=== PATIENT | male | born 1965 | race Caucasian/White ===

== ENCOUNTER → 2024-04-09 14:31 | Outpatient (CLI) | payer BC, SELFPAY ==
[2024-04-09 14:53] LABS: Hematocrit 42.6 % (41-53); Mean Corpuscular HGB Conc 35.1 % (30-36); Mean Corpuscular Hemoglobin 28.8 PG (26-34); Platelet Count 242 X10^3/uL (150-400); Red Cell Distribution Width 14.4 % (11.6-14.8)
[2024-04-09 15:05] LABS: HEMOLYSIS < 15 (0-50)
[2024-04-09 15:12] LABS: Alanine Aminotransferase 20 IU/L (<50); Albumin 4.5 g/dL (3.5-5.0); Albumin Globulin Ratio 1.7 (1.0-2.8); Alkaline Phosphatase 72 U/L (38-126); Aspartate Aminotransferase 24 IU/L (17-59); Bilirubin Total 0.5 mg/dL (0.2-1.3); Blood Urea Nitrogen 12 mg/dL (9-20); Calcium 9.6 mg/dL (8.4-10.2); Carbon Dioxide 28 mmol/L (22-32); Chloride 103 mmol/L (98-107); Cholesterol 194 mg/dL (140-199); Estimated Glomerular Filt Rate > 60 mL/min (>60); Globulin 2.6 g/dL (1.7-4.1); Glucose 107 mg/dL (80-110); HDL Cholesterol 39 mg/dL (40-60); LDL Cholesterol Calculated 100 mg/dL (<100); Potassium 4.2 mmol/L (3.4-5.1); Sodium 138 mmol/L (137-145); Total Protein 7.1 g/dL (6.3-8.2); Triglycerides 275 mg/dL (35-150)
[2024-04-09 18:07] LABS: Prostate Specific Antigen Scrn 1.16 ng/mL (0.1-4.0)
[2024-04-09 18:54] LABS: HIV 1 & 2 Ab/Ag 4th Gen Combo NEGATIVE (NEGATIVE); Hep C Virus Ab w/Reflex Quant NEGATIVE s/c (NEGATIVE)
== END ==
LOC: LAB 14:32
PROVIDERS: PCP Family Medicine; Referring Provider Family Medicine; Visit Provider Family Medicine
DX: I10 Essential (primary) hypertension (principal); R13.10 Dysphagia, unspecified; Z82.49 Family history of ischemic heart disease and other diseases of the circulatory system; Z12.5 Encounter for screening for malignant neoplasm of prostate; M62.08 Separation of muscle (nontraumatic), other site
CPT/HCPCS: 36415; 80053; 80061; 85027; 86803; 87389; G0103